=== PATIENT | male | born 1960 | race Caucasian/White ===

== ENCOUNTER 2016-08-15 13:05 | Outpatient (CLI) | payer OTHER ==
--- NOTE | 2016-08-15 13:34 | DIAGNOSTIC IMAGING REPORT ---
PROCEDURE: XR CHEST 2 VIEW INDICATION: COUGH TOBACCO ABUSE TECHNIQUE: PA and lateral views. COMPARISON: Chest 04/08/2010 FINDINGS: Lungs are clear. Heart and mediastinum are normal. Thorax is normal. IMPRESSION: 1. Negative chest.
== END 2016-08-15 23:00 ==
LOC: XR SRH 13:05
DX: R05 Cough (principal); F17.210 Nicotine dependence, cigarettes, uncomplicated

== ENCOUNTER 2016-09-22 13:00 | Outpatient (CLI) | payer OTHER ==
--- NOTE | 2016-09-22 16:20 | DIAGNOSTIC IMAGING REPORT ---
PROCEDURE: MR CERVICAL SPINE W/WO CONT INDICATION: LEFT CERVICAL RADICULOPATHY TECHNIQUE: T1, T2, and STIR sagittal sequences. T2 and GRE axial sequences. Bilateral T2 sagittal obliques. Post administration of 10 ml ProHance gadolinium based IV contrast, sagittal and axial T1 fat sat sequences were obtained. COMPARISON: None. FINDINGS: Alignment and curvature: Straightening of the normal cervical lordosis without significant subluxation. Vertebral bodies: Moderate to large anterior and lateral osteophytosis at the C5-6 level with type 2 endplate modic signal. Mild anterior endplate osteophytes at C6-7. Vertebral body heights and marrow signals are otherwise normal. Disc spaces: Moderate disc height loss C5-6 and mild disc height loss posteriorly at C7-T1. Otherwise minor disc height loss C6-7. Spinal canal: The visible posterior fossa is normal. The visible spinal cord is normal in caliber and signal. Paraspinal soft tissues: No obvious mass. Postsurgical scarring is seen in the dorsal soft tissues from approximately C5 through T1. C2-3: Mild posterior disc osteophyte complex without foraminal or central canal narrowing. C3-4: Moderate circumferential disc osteophyte complex and uncovertebral joint hypertrophy along with mild facet arthropathy cause a moderate bilateral foraminal narrowing and flattening of the anterior CSF. C4-5: Moderate circumferential disc osteophyte complex and uncovertebral joint hypertrophy. Moderate bilateral facet arthropathy causing a moderate right and mild left foraminal narrowing and flattening of the anterior CSF. C5-6: Moderate circumferential disc osteophyte complex and uncovertebral joint hypertrophy. Moderate bilateral facet arthropathy causing a moderate to severe bilateral narrowing and flattening of the anterior CSF. C6-7: Moderate circumferential disc osteophyte complex and uncovertebral joint hypertrophy along with mild facet arthropathy cause mild foraminal narrowing and flattening of the anterior CSF. C7-T1: Uncovertebral joint hypertrophy and mild facet arthropathy. Mild posterior disc bulge. Moderate right and mild left foraminal narrowing. Postcontrast, there is no suspicious enhancement of the vertebral bodies or soft tissues. IMPRESSION: 1. Multilevel disc osteophyte complex results in mild diffuse central canal narrowing from C3-4 through C6-7 without causing abnormal cord signal or significant cord impingement. 2. Uncovertebral joint hypertrophy and multilevel facet arthropathy cause multilevel bilateral foraminal narrowing, most extensive at the C5-6 level.
== END 2016-09-22 23:00 ==
LOC: MRI SRH 13:00 → LAB SRH 13:00 → MRI SRH 14:00
DX: M54.12 Radiculopathy, cervical region (principal); M48.02 Spinal stenosis, cervical region; F17.200 Nicotine dependence, unspecified, uncomplicated; R53.83 Other fatigue
CPT/HCPCS: 90074; 90100